=== PATIENT | female | born 1955 | race Caucasian/White ===

== ENCOUNTER 2020-07-29 06:00 | Emergency (ER) | payer SELFPAY ==
[~2020-07-29] VITALS: Ht 165.1 cm; Wt 67.6 kg
[2020-07-29 06:05] VITALS: BP 130/88
--- NOTE | 2020-07-29 06:08 | NUR ---
ambulated to bed 04 with steady gait
--- NOTE | 2020-07-29 06:16 | NUR ---
ERMD AT BEDSIDE EXAMINING PT
[2020-07-29] MEDS ORDERED: HYDROcodone/APAP 5/325 MG 1 TAB TAB PO ONE (06:20)
--- NOTE | 2020-07-29 06:20 | NUR ---
64 Y/O female c/o possible left wrist/hand fracture s/p fall from ascending the staircases at home x 12 hours. pt states 10/10 pain and numbness. unable to move L hand or feel touch. swelling and brusing noted. pmhx: asthma, brain aneurysm nka
--- NOTE | 2020-07-29 06:36 | NUR ---
xray at bedside
--- NOTE | 2020-07-29 07:08 | NUR ---
REPORT GIVEN TO ZHEN GREENE FOR CONTINUITY OF CARE
--- NOTE | 2020-07-29 08:10 | NUR ---
CALLED XRAY DEPARTMENT IN REG[facility]DS TO NO XRAY REPORTS AVAILABLE. 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
--- NOTE | 2020-07-29 08:54 | NUR ---
DR. Powers AT BEDSIDE GIVING D/C INSTRUCTIONS TO PT
--- NOTE | 2020-07-29 08:57 | NUR ---
APPLIED WRIST SPLINT TO LEFT WRIST WITHOUT ANY ISSUES
[2020-07-29 09:00] VITALS: BP 136/72
--- NOTE | 2020-07-29 09:00 | NUR ---
PT STATES SHE WILL COME BACK LATER TO [employer]
--- NOTE | 2020-07-29 09:00 | NUR ---
Patient discharged with v/s stable. Written and verbal after care instructions given and explained. Patient alert, oriented and verbalized understanding of instructions. Ambulatory with steady gait. All questions addressed prior to discharge. ID band removed. Patient advised to follow up with PMD. Rx of NORCO AND IBUPROFEN given. Patient educated on indication of medication including possible reaction and side effects. Opportunity to ask questions provided and answered.
== END 2020-07-29 09:00 | disposition home or self-care (01) ==
LOC: MED 06:00
DX: S63.095A Other dislocation of left wrist and hand, initial encounter (principal); W18.39XA Other fall on same level, initial encounter; Y93.89 Activity, other specified; Y92.89 Other specified places as the place of occurrence of the external cause; Y99.8 Other external cause status
CPT/HCPCS: 73110; 73130; 99284; Q0092

== ENCOUNTER 2021-05-30 15:34 | Emergency (ER) | payer OTHER ==
[~2021-05-30] VITALS: Ht 170.2 cm; Wt 59.4 kg
[2021-05-30 15:52] VITALS: BP 122/77
--- NOTE | 2021-05-30 16:20 | NUR ---
[facility] BEDSIDE EVALUATING PT
[2021-05-30] MEDS ORDERED: ERYT5OIN51 BOTH EYES (16:21)
--- NOTE | 2021-05-30 16:25 | NUR ---
65 Y/O FEMALE C/O BILATERAL EYE DISCOMFORT 05/28 DESCRIBES BURNING, ITCHING, DRYNESS, AND REDNESS X2DAYS. PT STATES "IT HURTS WHEN I OPEN MY EYELIDS". DENIES FEVER/CHILLS, DENIES N/V. DENIES TRAUMA/INJURY. PT STATES WHEN SHE WAKES UP IN THE MORNING HER EYES ARE CRUSTED TOGETHET. PT STATES SHE FELT SOME LIGHT HEADNESS YESTERDAY, BUT DENIES ANY TODAY PMH: ANEURISM, ASTHMA ALLERGIES: NORCO
[2021-05-30 16:27] VITALS: BP 122/77
--- NOTE | 2021-05-30 16:27 | NUR ---
Patient discharged with v/s stable. Written and verbal after care instructions given and explained. Patient alert, oriented and verbalized understanding of instructions. Ambulatory with steady gait. All questions addressed prior to discharge. ID band removed. Patient advised to follow up with PMD. Rx of ERYTHROMYCIN given. Patient educated on indication of medication including possible reaction and side effects. Opportunity to ask questions provided and answered.
== END 2021-05-30 16:27 | disposition home or self-care (01) ==
LOC: MED 15:34
DX: H10.9 Unspecified conjunctivitis (principal); B96.89 Other specified bacterial agents as the cause of diseases classified elsewhere; J45.909 Unspecified asthma, uncomplicated; Z79.899 Other long term (current) drug therapy
CPT/HCPCS: 99283